=== PATIENT | male | born 1975 | race Caucasian/White ===

== ENCOUNTER → 2016-09-02 | Outpatient (CLI) | payer BC ==
[~2016-09-02] MED LIST: HYDROCODONE BIT1 T11 PO
== END | disposition home or self-care (01) ==
LOC: RAD 14:27
DX: M25.571 Pain in right ankle and joints of right foot (principal); M25.471 Effusion, right ankle

== ENCOUNTER 2017-08-16 09:30 | Emergency (ER) | payer OTHER ==
[~2017-08-16] VITALS: Ht 187.9 cm; Wt 113.4 kg
[2017-08-16] MEDS ORDERED: OSTERA TABLET1 EACH PO (09:41)
[2017-08-16] MEDS ORDERED: LISINOPRIL30 MG PO (09:41)
[2017-08-16] MEDS ORDERED: 'CLONIDINE0.1 MG PO (09:41)
[2017-08-16] MEDS ORDERED: SERTRALINE HYDR50 MG PO (09:41)
[2017-08-16 09:47] LABS: BASO # 0.1 10*3/uL (0.0-0.1); EOS # 0.1 10*3/uL (0.0-0.4); HEMOGLOBIN 14.9 g/dl (14.0-18.0); LYMPH # 1.2 10*3/uL (1.3-4.4); LYMPH % 19.1 % (27.0-41.0); MEAN CELL VOLUME 85.1 fl (80.0-94.0); MEAN CORPUSCULAR HGB 29.5 pg (27.0-31.0); MEAN CORPUSCULAR HGB CONC 34.7 g/dl (33.0-37.0); MEAN PLATELET VOLUME 10.6 fl (9.6-12.3); MONO # 0.4 10*3/uL (0.1-1.0); MONO % 5.7 % (3.0-9.0); NEUT # 4.6 10*3/uL (2.3-7.9); NEUT % 72.9 % (47.0-73.0); PLATELET COUNT AUTOMATED 199 10*3/uL (130-400); RED BLOOD COUNT 5.05 10*6/uL (4.50-5.90); RED CELL DISTRI WIDTH 13.2 % (0-14.5); WHITE BLOOD COUNT 6.3 10*3/uL (4.8-10.8)
[2017-08-16 10:15] LABS: ALBUMIN 4.1 gm/dl (3.1-4.5); ALKALINE PHOSPHATASE 91 U/L (45-117); BUN 14 mg/dl (7-24); CHLORIDE 110 mmol/L (98-107); CREATININE 1.14 mg/dL (0.70-1.30); POTASSIUM 4.1 mmol/L (3.5-5.1); SGOT/AST 30 IU/L (3-35); SGPT/ALT 55 U/L (12-78); SODIUM 143 mmol/L (136-145); TOTAL PROTEIN 7.6 gm/dL (6.4-8.2)
[2017-08-16] MEDS ORDERED: NORCO 5-325 TA1 EACH PO (10:19)
[2017-08-16] MEDS ORDERED: COMPAZINE5 M3 PO (10:19)
[2017-08-16] MEDS ORDERED: FLOMAX0.4 MG PO (10:20)
[2017-08-16 10:57] LABS: BILIRUBIN NEGATIVE (NEGATIVE); BLOOD 3+ (NEGATIVE); CLARITY CLOUDY (CLEAR); COLOR YELLOW (YELLOW); GLUCOSE NEGATIVE (NEGATIVE); KETONE NEGATIVE (NEGATIVE); LEUKO ESTERASE NEGATIVE (NEGATIVE); NITRITE NEGATIVE (NEGATIVE); PH >= 9.0 (5.0-9.0); SPECIFIC GRAVITY 1.015 (1.005-1.030); UROBILINOGEN 0.2 E.U./dl (0.2-1.0)
[2017-08-16 11:03] LABS: RBC TNTC rbc/hpf (0-2)
== END 2017-08-16 11:45 | disposition home or self-care (01) ==
LOC: ED 09:30
PROVIDERS: Emergency Medicine
DX: N20.0 Calculus of kidney (principal); N13.30 Unspecified hydronephrosis; Z79.899 Other long term (current) drug therapy

== ENCOUNTER → 2021-04-03 | Outpatient (CLI) | payer OTHER ==
[~2021-04-03] MED LIST changes: +'CLONIDINE0.1 MG PO; +COMPAZINE5 M3 PO; +FLOMAX0.4 MG PO; +LISINOPRIL30 MG PO; +NORCO 5-325 TA1 EACH PO; +OSTERA TABLET1 EACH PO; +SERTRALINE HYDR50 MG PO
== END | disposition home or self-care (01) ==
LOC: RAD 14:14
PROVIDERS: ATTEND Internal Medicine
DX: M25.511 Pain in right shoulder (principal); M25.522 Pain in left elbow

== ENCOUNTER 2022-08-21 17:34 | Emergency (ER) | payer OTHER ==
[~2022-08-21] VITALS: Ht 187.9 cm; Wt 124.7 kg
[2022-08-21] MEDS ORDERED: LISINOPRIL40 MG PO (19:52)
[2022-08-21] MEDS ORDERED: HYDROCHLOROTHIA25 M1 PO (19:53)
[2022-08-21] MEDS ORDERED: CELEBREX100 MG PO (19:55)
[2022-08-21 20:07] LABS: BASO # 0.1 10*3/uL (0.0-0.1); BASO % 1.1 % (0.0-1.0); EOS # 0.2 10*3/uL (0.0-0.4); EOS % 2.6 % (1.0-4.0); LYMPH # 2.2 10*3/uL (1.3-4.4); LYMPH % 27.2 % (27.0-41.0); MEAN CELL VOLUME 83.9 fl (80.0-94.0); MEAN CORPUSCULAR HGB 29.1 pg (27.0-31.0); MEAN CORPUSCULAR HGB CONC 34.7 g/dl (33.0-37.0); MEAN PLATELET VOLUME 10.4 fl (9.6-12.3); MONO # 0.7 10*3/uL (0.1-1.0); MONO % 8.8 % (3.0-9.0); NEUT # 4.9 10*3/uL (2.3-7.9); NEUT % 60.1 % (47.0-73.0); PLATELET COUNT AUTOMATED 249 10*3/uL (130-400); WHITE BLOOD COUNT 8.2 10*3/uL (4.8-10.8)
[2022-08-21 20:28] LABS: ALKALINE PHOSPHATASE 91 U/L (46-116); BUN 15 mg/dl (9-23); CHLORIDE 103 mmol/L (98-107); CREATININE 0.99 mg/dL (0.70-1.30); LIPASE 40 U/L (12-53); POTASSIUM 3.9 mmol/L (3.4-5.1); SGPT/ALT 36 U/L (10-49); TOTAL PROTEIN 7.6 gm/dL (6.0-8.0)
[2022-08-21 21:41] LABS: BILIRUBIN Negative (Negative); BLOOD Negative (Negative); CLARITY Clear (Clear); COLOR Yellow (Yellow); GLUCOSE Negative (Negative); KETONE Negative (Negative); LEUKO ESTERASE Negative (Negative); NITRITE Negative (Negative); SPECIFIC GRAVITY >= 1.030 (1.001-1.030); UROBILINOGEN 0.2 E.U./dl (0.0-1.0)
[2022-08-21 21:52] LABS: RBC 0-2 rbc/hpf (0-2); WBC 0-2 wbc/hpf (0-5)
== END 2022-08-22 00:12 | disposition home or self-care (01) ==
LOC: ED 17:34
PROVIDERS: Physician Assistant
DX: R10.11 Right upper quadrant pain (principal); R11.0 Nausea; K76.0 Fatty (change of) liver, not elsewhere classified; Z88.8 Allergy status to other drugs, medicaments and biological substances